=== PATIENT | male | born 1985 | race Caucasian/White ===

== ENCOUNTER 2025-06-14 17:44 | Emergency (ER) | payer BC, OTHER ==
[2025-06-14] MEDS ORDERED: Lidocaine 1% PF 5 ML VIAL ONE (17:51)
[2025-06-14] MEDS ORDERED: Bacitracin 1 PK ONE (18:57)
== END 2025-06-14 19:00 | disposition home or self-care (01) ==
LOC: BURERS 17:44
DX: S61.012A Laceration without foreign body of left thumb without damage to nail, initial encounter (principal); S61.211A Laceration without foreign body of left index finger without damage to nail, initial encounter; W26.8XXA Contact with other sharp object(s), not elsewhere classified, initial encounter; Z23 Encounter for immunization
CPT/HCPCS: 12001; 90471; 90715